=== PATIENT | female | born 1995 | race Caucasian/White ===

== ENCOUNTER 2018-03-12 10:40 | Emergency (ER) | payer OTHER ==
[~2018-03-12] VITALS: Ht 160 cm; Wt 52.2 kg
== END 2018-03-12 17:03 | disposition home or self-care (01) ==
LOC: ER 10:40
DX: T16.1XXA Foreign body in right ear, initial encounter (principal); H60.391 Other infective otitis externa, right ear; W45.8XXA Other foreign body or object entering through skin, initial encounter; Y93.89 Activity, other specified; Y92.89 Other specified places as the place of occurrence of the external cause; Y99.8 Other external cause status

== ENCOUNTER 2022-01-30 07:35 | Outpatient (CLI) | payer OTHER | END 2022-01-30 08:54 | disposition home or self-care (01) | LOC: NST 07:35 | PROVIDERS: ATTEND Obstetrics & Gynecology Maternal & Fetal Medicine | DX: Z34.83 Encounter for supervision of other normal pregnancy, third trimester (principal) ==